=== PATIENT | female | born 1990 | race Caucasian/White ===

== ENCOUNTER 2020-06-26 02:22 | Emergency (ER) | payer OTHER, SELFPAY ==
--- NOTE | ~2020-06-26 | CT_ITS ---
EXAMINATION: CT brain wo con INDICATION: Head injury COMPARISON: None TECHNIQUE: Standard unenhanced head CT. The dose-length product (DLP) was 605.33 mGy-cm. The mA was a djusted according to patient size. Iterative reconstruction technique was employed. FINDINGS: There is left periorbital and frontal scalp soft tissue swelling. There is no intracranial hemorrhage, acute infarction, or abnormal mass lesion. The ventricles are normal. There is no abnorma l mass effect or midline shift. The abdalla-white matter differentiation is normal. The basal cisterns a re patent. The orbits are normal. There is a fracture in the medial wall of the left orbit. There is mucosal thickening of the maxillary sinuses and ethmoidal air cells. IMPRESSION: 1. No acute intracranial abnormality. 2. Left medial orbital wall fracture. Reviewed, dictated and finalized at location A. 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
--- NOTE | ~2020-06-26 | CT_ITS ---
EXAMINATION: CT facial bones wo con DATE: 06/26/2020 03:04 INDICATION: Head injury, left facial pain TECHNIQUE: Computed tomography (CT) of the facial bones and maxillofacial region was performed withou t intravenous contrast. The dose-length product (DLP) was 289.57 mGy-cm. Automated exposure control a nd iterative reconstruction technique were employed. COMPARISON: None. FINDINGS: There is a fracture in the medial left orbital wall containing fat. No muscular entrapment no additional facial fracture is identified. The globes are intact. There is left periorbital and fro ntal scalp soft tissue swelling. There is mucosal thickening of the maxillary sinuses and ethmoidal a ir cells. IMPRESSION: 1. Left medial orbital wall fracture containing fat. Reviewed, dictated and finalized at location A. H[employer] ATT[employer]ER
[2020-06-26 02:22] VITALS: BP 135/85; PULSE 89; RESP 18; TEMP 37.1; O2SAT 100
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
[2020-06-26 04:35] VITALS: BP 129/80; PULSE 81; RESP 18; O2SAT 98
== END 2020-06-26 04:35 | disposition home or self-care (01) ==
PROVIDERS: Emergency Provider Emergency Medicine
DX: S02.832A Fracture of medial orbital wall, left side, initial encounter for closed fracture (principal); Y04.8XXA Assault by other bodily force, initial encounter; S01.81XA Laceration without foreign body of other part of head, initial encounter
CPT/HCPCS: 12011; 70450; 70486; 99284

== ENCOUNTER 2020-07-31 18:02 | Emergency (ER) | payer OTHER, SELFPAY ==
[2020-07-31 18:35] VITALS: BP 113/78; PULSE 90; RESP 16; TEMP 37.1; O2SAT 100
--- NOTE | 2020-07-31 18:48 | ED.GENADULT ---
HPI - General Adult General Chief complaint: Upper Respiratory Infection Stated complaint: Sore Throat Time Seen by Provider: 07/31/20 18:48 Source: patient Mode of arrival: ambulatory Limitations: no limitations History of Present Illness HPI narrative: 29-year-old female patient presents to the [facility] with complaints of a sore throat for the past 3 days. Patient states she has had some low-grade fevers and some body aches and chills. Patient states she has had strep before. Patient states that she did have Covid about 5 months ago. Patient states that her friend had some leftover antibiotics that she has taken a couple times but she is not aware of the name of the antibiotic. Related Data Allergies Allergy/AdvReac Type Severity Reaction Status Date / Time No Known Allergies Allergy Unverified 07/31/20 18:19 Review of Systems Review of Systems: Narrative: CONSTITUTIONAL: Positive subjective fever, chills, body aches, denies sweats. EYES: Denies visual changes, redness, or discharge. ENT: Denies rhinorrhea, congestion, positive sore throat, denies otalgia. CARDIOVASCULAR: Denies chest pain, palpitations, or edema. RESPIRATORY: Denies cough or dyspnea. GASTROINTESTINAL: Denies abdominal pain, nausea, vomiting, or diarrhea. GENITOURINARY: Denies dysuria or hematuria. SKIN: Denies rash or itching. MUSCULOSKELETAL: Denies back pain, joint pain, or myalgia. NEUROLOGIC: Denies headache, numbness, or weakness. PSYCHIATRIC: Denies anxiety or depression. [facility] Past Medical History Medical History (Updated 07/31/20 @ 18:54 by STEPHEN Mackay) induced hypertension Social History Social History Gender identity (if verbalized by the patient): Female Comments At the time of my signature I agree with nursing past medical history, surgical, social, and family history. There is no relevant family history pertinent to the presenting complaint. Exam Narrative: Exam Narrative: GENERAL: Well-appearing, well-nourished, and in no acute distress. HEAD: Normocephalic, atraumatic. EYES: PERRLA and EOMI. ENT: Nares clear, no rhinorrhea or epistaxis. Mucous membranes moist. Posterior pharynx with fiery red erythema and 1+ tonsil enlargement, no exudates or lesions present. NECK: Supple. No lymphadenopathy CHEST: Clear to auscultation. No respiratory distress. HEART: Regular rate and rhythm. No murmur heard. Normal peripheral pulses. ABDOMEN: Soft, nontender, nondistended, normal active bowel sounds. EXTREMITIES: Normal range of motion. No edema. SKIN: Warm, dry, no rash. NEURO: No focal deficits. Alert and oriented x3. Course Vital Signs Vital signs: Vital Signs Temperature 37.1 C 07/31/20 18:35 Pulse Rate 90 07/31/20 18:35 Respiratory Rate 16 07/31/20 18:35 Blood Pressure 113/78 07/31/20 18:35 Pulse Oximetry 100 07/31/20 18:35 Temperature 37.1 C 07/31/20 18:35 Pulse Rate 90 07/31/20 18:35 Respiratory Rate 16 07/31/20 18:35 Blood Pressure 113/78 07/31/20 18:35 Pulse Oximetry 100 07/31/20 18:35 Vital signs reviewed Medical Decision Making Differential Diagnosis Differential Diagnosis: Differential diagnosis: Viral pharyngitis, pharyngitis, group A strep, infectious mononucleosis, gonococcal pharyngitis, exudative pharyngitis, oral candidiasis. Chronic allergies, postnasal drip, GERD, abscess formation, but glottitis, retropharyngeal abscess formation, or airway obstruction, COVID-19 Discussed with patient we did do a rapid strep on her which she is positive for. Discussed with her that we also did a rapid Covid on her which is negative. Discussed with patient that since she did have Covid 5 months ago as well as a rapid negative Covid test today, I do not feel strongly about sending a PCR off on her since this is an obvious strep infection. Discussed with patient we will go ahead and treat her with oral antibiotics today and
== END 2020-07-31 18:58 | disposition home or self-care (01) ==
PROVIDERS: Emergency Provider Nurse Practitioner Family
DX: J02.0 Streptococcal pharyngitis (principal); Z20.822 Contact with and (suspected) exposure to COVID-19
CPT/HCPCS: 87426; 87804; 87880; 99213; C9803; G0463